=== PATIENT | male | born 1940 | race Caucasian/White ===

== ENCOUNTER 2017-03-18 17:29 | Emergency (ER) | payer OTHER, MEDICAID ==
[2017-03-18 18:47] LABS: BASOPHIL % 0.2 % (0-2); PLATELET COUNT 306 x10^3mcL (130-400); RED CELL DISTRIBUTION WIDTH 13.7 % (11.5-14.5)
[2017-03-18 18:57] LABS: microscopic required? YES; urine erythrocyte TRACE (NEGATIVE)
[2017-03-18 18:58] LABS: CALCIUM 8.9 mg/dL (8.5-10.1); CARBON DIOXIDE 33.7 mmol/L (21-32); CHLORIDE SERUM 101 mmol/L (98-107); CREATININE SERUM 0.8 mg/dL (0.7-1.3); GLUCOSE SERUM 167 mg/dL (74-106); POTASSIUM SERUM 3.9 mmol/L (3.5-5.1); SODIUM SERUM 138 mmol/L (136-145)
[2017-03-18 19:07] LABS: ALKALINE PHOSPHATASE 73 U/L (46-116); ALT/SGPT 14 U/L (16-63); AST/SGOT 14 U/L (15-37); BILIRUBIN TOTAL 0.74 mg/dL (0.20-1.00); TOTAL PROTEIN, SERUM 7.3 g/dL (6.4-8.2)
[2017-03-18 19:08] LABS: ALBUMIN 2.9 g/dL (3.4-5.0)
[2017-03-18 19:51] VITALS: BP 115/57
== END 2017-03-18 19:51 | disposition home or self-care (01) ==
LOC: ED 17:29
PROVIDERS: Emergency Medicine
DX: N39.0 Urinary tract infection, site not specified (principal); Z88.0 Allergy status to penicillin
CPT/HCPCS: 36415